=== PATIENT | male | born 2005 | race Two or more races ===

== ENCOUNTER 2024-10-18 10:20 | Emergency (ER) | payer BC, SELFPAY ==
[2024-10-18 10:21] VITALS: BMI 35.9
[2024-10-18 10:41] VITALS: BP 144/86; PULSE 98; RESP 18; TEMP 36.6; O2SAT 99
--- NOTE | 2024-10-18 11:08 | XR_ITS ---
Examination: Hand, left 3 views Technique: Hand AP, oblique, lateral 3 views Date and time of exam: October 18, 2024 1149 hours INDICATIONS: Dog bite to the hand today with pain FINDINGS: No fracture. No opaque foreign body IMPRESSION: No opaque foreign body
--- NOTE | 2024-10-18 11:14 | EDNOTE_ITS ---
ED Animal Bite RME/HPI General Chief Complaint: Animal Bite Stated Complaint: BIT BY A DOG ON BILAT. HANDS Time Seen by Provider: 10/18/24 10:38 Source: patient Arrival date/time: 10/18/24 10:20 This is a 19-year-old male who presents to the emergency department with complaints of a dog bite sustained earlier today. The patient reports he was bitten on the right hand by his own dog. He notes a couple of puncture wounds localized at the base of the fifth digit. He denies any other injuries or complaints. No current signs of fever, swelling, or decreased range of motion reported. Mode of arrival: ambulatory Limitations: no limitations Related Data Previous Rx's ?Medication ?Instructions ?Recorded ibuprofen 800 mg tablet 800 mg PO TID PRN pain #30 t abs 02/23/22 amoxicillin 875 mg-potassium 1 tab PO BID #14 tabs clavulanate 125 mg tablet Allergies Allergy/AdvReac Type Severity Reaction Status Date / Time No Known Allergies Allergy Verified 10/18/24 10:24 Review of Systems Review of Systems Systems Reviewed: All systems reviewed, normal except as documented Narrative Review of Systems: Gen: No fever, no chills, no weight loss EYES: No discharge, no visual changes, no pain HEENT: No ear pain, no congestion, no sore throat PULM: No shortness of breath, no cough, no congestion CV: No chest pain, no dyspnea on exertion, no palpitations GI: No nausea, no vomiting, no diarrhea, no pain, no constipation : No frequency, no urgency,? no dysuria Musc/skel: No joint pain, no back pain Skin: +dog bite ED Exam General Limitations: Present no limitations General appearance: Present alert and in no apparent distress Head Head exam: Present atraumatic Eye Eye exam: Present normal appearance, PERRL and EOMI ENT ENT exam: Present normal exam, normal oropharynx and mucous membranes moist Neck Neck exam: Present normal inspection, full ROM and trachea midline Chest Chest inspection: Present normal inspection and symmetric chest wall rise Respiratory Respiratory exam: Present normal lung sounds bilaterally Cardiovascular Cardiovascular exam: Present regular rate, normal rhythm and normal heart sounds Abdominal Exam Abdominal exam: Present soft and normal bowel sounds Extremities Exam Extremities exam: Present full ROM Expanded Upper Extremity Exam Shoulder exam: Present normal inspection Arm exam: Present normal inspection Elbow exam: Present normal inspection Hand exam: Present tenderness and swelling Hand L/R back image: 2 1. + Superficial puncture bites to base of fifth digit and medial aspect between 1st and 2nd digit dorsum. 2. Back Exam Back exam: Present normal inspection and full ROM Neurological Exam Neurological exam: Present alert, oriented X3 and CN II-XII intact Psychiatric Psychiatric exam: Present normal affect and normal mood Skin Skin exam: Present warm, dry, intact and normal color Course Quality Measures none Orders Category Date Time Status Wound Care NOW Care 10/18/24 11:08 Completed XR hand comp RT min 3V Stat Exams 10/18/24 11:08 Completed TET,DIP/PERT AC (Adult)-Tdap [Boostrix Adult (Tdap) Med 10/18/24 11:08 Discontinued Vacc] 0.5 ml IMI .ONCE ONE Vital Signs Vital signs: Vital Signs Temperature 98 F 10/18/24 10:41 Pulse Rate 98 10/18/24 10:41 Respiratory Rate 18 10/18/24 10:41 Blood Pressure 144/86 H 10/18/24 10:41 Pulse Oximetry (%) 99 10/18/24 10:41 Oxygen Delivery Method Room Air 10/18/24 10:41 Animal Bite MDM Narrative MDM Narrative:: 19-year-old male presents with a dog bite to the right hand. X-ray of the hand was obtained and is negative for fractures, dislocations, or foreign bodies. Wound examined and cleaned thoroughly in the emergency department. Tetanus vaccine was updated. Due to the risk of infection with puncture wounds from animal bites, Augmentin was prescribed for prophylactic coverage. Patient is stable for discharge with return precautions discussed. Patient data External records reviewed:: [facility] previous records Clinical information provided by:: patient Social determinants that could affect healthcare access:: none Patient has the following chronic illnesses:: no How is presenting disease/condition affected by chronic disease/condition?: u neffected by Evaluation data The following diagnostics were reviewed and interpreted by me:: other (specify) Lab and/or radiology exams considered but not ordered:: yes Interpretation Summary: Examination: Hand, left 3 views Technique: Hand AP, oblique, lateral 3 views Date and time of exam: October 18, 2024 1149 hours INDICATIONS: Dog bite to the hand today with pain FINDINGS: No fracture. No opaque foreign body IMPRESSION: No opaque foreign body Medications / Prescriptions Medications or Prescriptions considered but not ordered:: no Medication administrations:: Medication Administration History Discontinued Medications Diphtheria/Tetanus/Acell Pertussis (Diphth,Pertuss(Acell),Tet Vac 0.5 Ml Syr- Adult) 0.5 ml IMi .ONCE ONE Stop: 10/18/24 11:09 Last Admin: 10/18/24 12:35 Dose: 0.5 ml Documented By: VG All medications administered and effective Consultations Consultation(s) initiated? (list below): No Diagnosis Differential diagnosis animal bite: bite by animal, cat bite and dog bite Most likely diagnosis given after review of the tests above:: Dog bite, dog wound Admission Indicated Admission indicated?: not indicated Admission Request Was there a request for admission?: No Disposition Plan Disposition Plan: Discharge Discharge Attestation Discharge Attestation: The patient and all family members were given an opportunity to ask questions and understood the discharge instructions. Discharge instructions specifically effects, indications for sooner follow up or return to the emergency department, and the expected course of current diagnosis. Patient condition: Stable Discharge Plan Plan Patient Disposition: HOME (Self Care) Patient condition on transfer: Stable Prescriptions/Referrals Prescriptions/Med Rec: New amoxicillin-pot clavulanate 875-125 mg tablet 1 tab PO BID Qty: 14 0RF No Action ibuprofen 800 mg tablet 800 mg PO TID PRN (Reason: pain) Qty: 30 0RF Referrals: John Jha MD [Primary Care Provider] - In 1 week Problem List Clinical Impression: Dog bite Patient/Caregiver Discharge Instructions Discharge Activity: activity as tolerated Education Materials: ED Animal Bite (General) Additional Instructions: You were treated today for a dog bite to your right hand. The wound has been cleaned, and you received a tetanus shot. An antibiotic (Augmentin) has been prescribed to help prevent infection. * Take the antibiotic exactly as prescribed. * Keep the wound clean and dry. You may apply a clean bandage as needed. * Watch for signs of infection such as redness, swelling, warmth, pus, or increasing pain. * Return to the emergency department if you develop fever, worsening pain, or difficulty moving the fingers. * Follow up with your primary care provider within 1?2 days for wound reassessment. Print Language: Mosotho Stand Alone Forms: Bev Award Info., Patient Portal Info Letter MARIS/CINDY Supervising Physician MARIS/CINDY Supervising Physician: Dr Barnes
[2024-10-18] MEDS: DIPHTH,PERTUSS(ACELL),TET VAC 0.5 ML SYR- ADULT IMi (12:35)
== END 2024-10-18 13:11 | disposition home or self-care (01) ==
PROVIDERS: Emergency Provider Emergency Medicine; PCP Family Medicine
DX: S61.431A Puncture wound without foreign body of right hand, initial encounter (principal); W54.0XXA Bitten by dog, initial encounter; Z23 Encounter for immunization
CPT/HCPCS: 73130; 90471; 90715; 99283